=== PATIENT | female | born 1970 | race Two or more races ===

== ENCOUNTER 2020-07-18 19:30 | Emergency (ER) | payer BC ==
[~2020-07-18] VITALS: Ht 172.7 cm; Wt 107.0 kg
[2020-07-18 19:42] VITALS: BP 156/84
== END 2020-07-18 21:00 | disposition left against medical advice (07) ==
LOC: ER 19:30
DX: Z53.21 Procedure and treatment not carried out due to patient leaving prior to being seen by health care provider (principal); I49.9 Cardiac arrhythmia, unspecified
CPT/HCPCS: 93005